=== PATIENT | male | born 1990 | race Hispanic/Latino ===

== ENCOUNTER 2021-01-01 10:45 | Outpatient (CLI) | payer BC | END 2021-01-01 10:46 | disposition home or self-care (01) | LOC: TBSIIMAG 10:45 | PROVIDERS: ATTEND Psychiatry & Neurology Neurology | DX: M54.13 Radiculopathy, cervicothoracic region (principal); M50.222 Other cervical disc displacement at C5-C6 level; M47.812 Spondylosis without myelopathy or radiculopathy, cervical region; M48.02 Spinal stenosis, cervical region | CPT/HCPCS: 72141 ==

== ENCOUNTER 2021-01-20 10:16 | Outpatient (CLI) | payer BC | END 2021-01-20 10:17 | disposition home or self-care (01) | LOC: DTY/OP 10:16 | PROVIDERS: ATTEND Surgery | DX: E66.01 Morbid (severe) obesity due to excess calories (principal) | CPT/HCPCS: 97802 ==

== ENCOUNTER 2021-05-14 11:58 | Outpatient (CLI) | payer BC ==
[2021-05-14 14:03] LABS: ALT (SGPT) 48 U/L (8-55); AST (SGOT) 28 U/L (5-34); Albumin 4.8 g/dL (3.5-5.0); Alkaline Phosphatase 57 U/L (40-110); Anion Gap 15 mmol/L (10-20); BUN (Urea Nitrogen) 16 mg/dL (8.9-20.6); Bilirubin, Total 0.4 mg/dL (0.2-1.2); Calc. Creatinine Clearance 0 mL/min (70-130); Calcium 10.4 mg/dL (7.8-10.44); Carbon Dioxide 24 mmol/L (22-29); Chloride 105 mmol/L (98-107); Glucose 80 mg/dL (70-105); Potassium 4.3 mmol/L (3.5-5.1); Protein, Total 7.8 g/dL (6.0-8.3); Sodium 140 mmol/L (136-145)
[2021-05-14 14:05] LABS: #Basophils 0.1 10x3/uL (0.0-0.2); #Eosinphils 0.1 10x3/uL (0.0-0.5); #Monocytes 0.4 10x3/uL (0.0-1.1); #Neutrophils 4.8 10x3/uL (1.5-8.4); %Basophils 0.8 % (0.0-2.0); %Eosinophils 1.2 % (0.0-6.0); %Lymphocytes 30.7 % (18.0-47.0); %Monocytes 4.7 % (0.0-10.0); %Neutrophils 62.5 % (40.0-75.0); Hemoglobin 13.4 g/dL (13.5-17.5); Mean Corpuscular HGB CONC 33.5 g/dL (32.0-36.0); Mean Corpuscular Hemoglobin 29.9 pg (27.0-33.0); Mean Corpuscular Volume 89.3 fl (81.2-95.1); Mean Platelet Volume 10.2 fl (7.4-10.4); Platelet Count 339 10x3/uL (150-450); RBC Distribution Width 12.6 % (11.5-14.5); Red Blood Cell (RBC) Count 4.48 10x6/uL (4.32-5.72); White Blood Cell (WBC) Count 7.7 10x3/uL (3.5-10.5)
[2021-05-14 20:23] LABS: Hemoglobin A1c 5.3 % (4.0-6.0)
[2021-05-15 08:32] LABS: SARS-CoV-2 PCR by NAA Not Detected (NotDetected)
== END 2021-05-14 11:59 | disposition home or self-care (01) ==
LOC: LABBT 11:58
PROVIDERS: ATTEND Surgery
DX: Z01.818 Encounter for other preprocedural examination (principal); E66.01 Morbid (severe) obesity due to excess calories; Z20.822 Contact with and (suspected) exposure to COVID-19
CPT/HCPCS: 71046; 80053; 83036; 85025; 93005; 93010; U0003; U0005

== ENCOUNTER 2021-05-14 17:00 | Inpatient (IN) | payer BC ==
[2021-05-15 12:23] VITALS: BMI 41.1
[2021-05-19] MEDS ORDERED: Heparin 5,000 UNITS/ML VIAL ONE (06:36)
[2021-05-19] MEDS ORDERED: Lidocaine 1% w/Epinephrine 1:100K 20 ML VIAL ONE (06:42)
[2021-05-19] MEDS ORDERED: Bupivacaine 0.25% HCL 30 ML VIAL ONE (06:42)
[2021-05-19] MEDS ORDERED: Scopolamine 1.5 mg/72 hour Patch ONE (07:15)
[2021-05-19] MEDS ORDERED: SUGAMMADEX SODIUM 200 MG/2 ML VIAL ONE (07:34)
[2021-05-19] MEDS ORDERED: Fentanyl 250 MCG/5 ML VIAL ONE (07:34)
[2021-05-19] MEDS ORDERED: Rocuronium Bromide 10 MG/ML (10ML VIAL) ONE (07:42)
[2021-05-19] MEDS ORDERED: ePHEDrine 50 MG/ML VIAL ONE (07:42)
[2021-05-19] MEDS ORDERED: Ketorolac Tromethamine 30 MG/ML VIAL ONE ×2 (07:42→09:28)
[2021-05-19] MEDS ORDERED: PROPOFOL 200 MG/20 ML VIAL ONE (07:42)
[2021-05-19] MEDS ORDERED: Dexamethasone 20 MG/5 ML VIAL ONE (07:42)
[2021-05-19] MEDS ORDERED: Lidocaine 1% PF 5 ML VIAL ONE (07:42)
[2021-05-19] MEDS ORDERED: Glycopyrrolate 0.2 MG/ML 5 ML SYRINGE ONE ×2 (07:42)
[2021-05-19] MEDS ORDERED: Ondansetron PF 4 MG/2 ML Vial ONE (07:42)
[2021-05-19] MEDS ORDERED: Promethazine HCl 25 MG/ML VIAL IVPB PRN (09:28)
[2021-05-19] MEDS ORDERED: Promethazine HCl 25 MG/ML VIAL IM PRN ×2 (09:28→09:29)
[2021-05-19] MEDS ORDERED: Ondansetron HCl/PF 4 MG/2 ML Vial IVP PRN (09:28)
[2021-05-19] MEDS ORDERED: Naloxone HCl 0.4 mg/ml Vial IV PRN (09:29)
[2021-05-19] MEDS ORDERED: diphenhydrAMINE 50 MG/ML VIAL IM PRN (09:29)
[2021-05-19] MEDS ORDERED: Zolpidem Tartrate 5 MG TAB PO PRN (09:29)
[2021-05-19] MEDS ORDERED: diphenhydrAMINE 25 MG CAP PO PRN (09:29)
[2021-05-19] MEDS ORDERED: fentaNYL Citrate/PF 2,000 MCG in Sodium Chloride 0.9% 60 ML IV PRN (09:29)
[2021-05-19] MEDS ORDERED: diphenhydrAMINE 50 MG/ML VIAL IVP PRN ×2 (09:29→13:50)
[2021-05-19] MEDS ORDERED: Communication Order-Pharmacy FS SCH (09:30)
[2021-05-19] MEDS ORDERED: Dextrose 5% in Water 1,000 ML IV PRN (13:50)
[2021-05-19] MEDS ORDERED: hydrALAZINE 20 MG/ML VIAL SLOW IVP PRN (13:50)
[2021-05-19] MEDS ORDERED: Ondansetron PF 4 MG/2 ML Vial IVP PRN (13:50)
[2021-05-19] MEDS ORDERED: Dextrose 50% Abboject 50 ML SYRINGE SLOW IVP PRN (13:50)
[2021-05-19] MEDS: D5 1/2 NS w/20 mEq KCL 1,000 ML IV SCH ×2 (14:57→21:56)
[2021-05-19] MEDS: Ondansetron PF 4 MG/2 ML Vial IVP PRN (19:42)
[2021-05-19] MEDS ORDERED: Enoxaparin Sodium 40 MG/0.4 ML SYRINGE SC SCH (21:00)
[2021-05-19] MEDS: Promethazine HCl 25 MG/ML VIAL IM PRN (23:53)
[2021-05-20] MEDS: D5 1/2 NS w/20 mEq KCL 1,000 ML IV SCH (05:22)
[2021-05-20 06:06] LABS: #Lymphocytes 1.5 thou/uL (1.20-3.40); #Monocytes 0.7 thou/uL (0.11-0.59); #Neutrophils 8.4 thou/uL (1.40-6.50); %Basophils 0.2 % (0.0-1.0); %Eosinophils 0.1 % (0.0-10.0); %Lymphocytes 14.4 % (21.0-51.0); %Monocytes 6.5 % (0.0-10.0); %Neutrophils 78.8 % (42.0-75.0); Hemoglobin 13.6 g/dL (14.0-18.0); Mean Corpuscular Hemoglobin 31.8 pg (27.0-31.0); Mean Corpuscular Volume 90.9 fL (78.0-98.0); Mean Platelet Volume 7.8 fL (7.4-10.4); Platelet Count 331 thou/uL (130-400); RBC Distribution Width 12.2 % (11.5-14.5); Red Blood Cell (RBC) Count 4.27 mill/uL (4.70-6.10); White Blood Cell (WBC) Count 10.7 thou/uL (4.8-10.8)
[2021-05-20 06:29] LABS: Anion Gap 12 mmol/L (10-20); BUN (Urea Nitrogen) 7 mg/dL (8.9-20.6); Calc. Creatinine Clearance 284 mL/min (70-130); Calcium 9.3 mg/dL (7.8-10.44); Carbon Dioxide 24 mmol/L (22-29); Chloride 105 mmol/L (98-107); Glucose 128 mg/dL (70-105); Potassium 4.2 mmol/L (3.5-5.1); Sodium 137 mmol/L (136-145)
[2021-05-20] MEDS: Ondansetron PF 4 MG/2 ML Vial IVP PRN (08:28)
[2021-05-20] MEDS ORDERED: Pantoprazole 40 MG VIAL IVP SCH (09:00)
[2021-05-20] MEDS ORDERED: Hydrocodone-Acetamin 15 ML UDCUP PO PRN (09:00)
[2021-05-20] MEDS ORDERED: Losartan 25 MG TAB PO SCH (09:00)
[2021-05-20] MEDS: Promethazine HCl 25 MG/ML VIAL IM PRN (10:39)
[2021-05-20 12:36] VITALS: BP 148/89; TEMP 98.6
== END 2021-05-20 13:32 | disposition home or self-care (01) | DRG 621 ==
LOC: SURG A 05-19 06:12 → SURG B 05-19 12:33
PROVIDERS: ADMIT Surgery; ATTEND Surgery
PROC: 0DB64Z3 Excision of Stomach, Percutaneous Endoscopic Approach, Vertical (ICD-10-PCS; principal; 2021-05-20)
PROC: 8E0W4CZ Robotic Assisted Procedure of Trunk Region, Percutaneous Endoscopic Approach (ICD-10-PCS; 2021-05-20)
DX: E66.01 Morbid (severe) obesity due to excess calories (principal); I10 Essential (primary) hypertension; Z68.41 Body mass index [BMI] 40.0-44.9, adult
CPT/HCPCS: 36415; 80048; 85025; 88307; 94760; C9113; J1100; J1644; J1650; J1885; J2405; J2550; J2704; J3010; J3480; J3490; S0020

== ENCOUNTER 2022-05-26 12:19 | Outpatient (CLI) | payer BC | END 2022-05-26 12:20 | disposition home or self-care (01) | LOC: CTENTCT 12:19 | PROVIDERS: ATTEND Student in an Organized Health Care Education/Training Program | DX: R51.9 Headache, unspecified (principal) | CPT/HCPCS: 70486 ==

== ENCOUNTER 2022-06-08 07:00 | Day surgery (SDC) | payer BC ==
[2022-06-07 11:31] VITALS: BMI 26.9
[2022-06-08] MEDS ORDERED: Lidocaine 4% Topical Sol 50 ML BOT ONE (07:08)
[2022-06-08] MEDS ORDERED: Propofol 1,000 MG/100 ML VIAL IV ONE (07:08)
[2022-06-08] MEDS ORDERED: fentaNYL PF 100 MCG/2 ML SYRINGE ONE ×2 (07:08)
[2022-06-08] MEDS ORDERED: Oxymetazoline HCl 0.05% (30 ML BOT) ONE ×2 (07:10→07:23)
[2022-06-08] MEDS ORDERED: EPINEPHrine 1 MG/ML AMP ONE (07:10)
[2022-06-08] MEDS ORDERED: Bacitracin Zinc Ointment 30 gm TUBE ONE (07:10)
[2022-06-08] MEDS ORDERED: Lidocaine 1% (PF) 30 ML VIAL ONE (07:10)
[2022-06-08] MEDS ORDERED: Dexmedetomidine 200 MCG/2 ML VIAL ONE (07:14)
[2022-06-08] MEDS ORDERED: CEFAZOLIN 2 GM VIAL ONE (07:34)
[2022-06-08] MEDS ORDERED: Sodium Chloride 0.9% 100 ML ONE (07:34)
[2022-06-08] MEDS ORDERED: Ondansetron PF 4 MG/2 ML Vial ONE (08:00)
[2022-06-08] MEDS ORDERED: Dexamethasone 20 MG/5 ML VIAL ONE (08:00)
[2022-06-08] MEDS ORDERED: Rocuronium Bromide 10 MG/ML (10ML VIAL) ONE (08:00)
[2022-06-08] MEDS ORDERED: Glycopyrrolate 0.2 MG/ML 5 ML SYRINGE ONE (08:00)
[2022-06-08] MEDS ORDERED: NEOSTIGMINE 3 MG/3 ML SYR 3 MG/3 ML SYRINGE ONE (08:00)
[2022-06-08] MEDS ORDERED: PROPOFOL 200 MG/20 ML VIAL ONE (08:00)
[2022-06-08] MEDS ORDERED: FENTANYL 50 MCG/ML 1 ML VIAL ONE (10:40)
[2022-06-08] MEDS ORDERED: HYDROcodone/Acetaminophen 5/325 mg Tablet ONE (11:20)
== END 2022-06-08 12:05 | disposition home or self-care (01) ==
LOC: SDC 07:00
PROVIDERS: ATTEND Student in an Organized Health Care Education/Training Program
PROC: 09QK0ZZ Repair Nasal Mucosa and Soft Tissue, Open Approach (ICD-10-PCS; principal; 2022-06-08)
PROC: 09SM0ZZ Reposition Nasal Septum, Open Approach (ICD-10-PCS; principal; 2022-06-08)
PROC: 09TL0ZZ Resection of Nasal Turbinate, Open Approach (ICD-10-PCS; principal; 2022-06-08)
DX: J34.2 Deviated nasal septum (principal); J34.3 Hypertrophy of nasal turbinates; J34.89 Other specified disorders of nose and nasal sinuses; J01.91 Acute recurrent sinusitis, unspecified; S02.2XXA Fracture of nasal bones, initial encounter for closed fracture; I10 Essential (primary) hypertension; Z79.2 Long term (current) use of antibiotics; Z88.8 Allergy status to other drugs, medicaments and biological substances; Z98.84 Bariatric surgery status
CPT/HCPCS: C1889; J0171; J1100; J2001; J2405; J2704; J3010; J3490